=== PATIENT | male | born 1940 | race Caucasian/White ===

== ENCOUNTER 2017-01-20 05:40 | Emergency (ER) | payer OTHER ==
[~2017-01-20] VITALS: Ht 177.8 cm; Wt 77.1 kg
--- NOTE | ~2017-01-20 | EKG ---
[place] [address] [facility] [address] [place] [address] ELECTROCARDIOGRAM REPORT Name: GLENN SUE [id number] Admission: 01/20/17 Attend Phys: Discharge: 01/20/17 Date of : 36 Report #: [id number] THIS REPORT FOR: //name// [facility] ED Test Date: 2017-01-20 Test Time: 05:50:05 Pat Name: GLENN SUE Department: Room: Gender: Product Manager: SGONZAOREN : 1940 Requested By: Brielle Roe Order Number: [id number] MD: Nicolás Martínez Measurements Intervals [place] Rate: 83 P: 67 W[place]: 157 QRS: 32 QRSD: 165 T: 36 QT: 408 QTc: 480 Interpretive Statements Sinus rhythm Right bundle branch block Baseline wander in lead(s) II Compared to ECG 12/02/2010 08:27:44 No significant changes Electronically Signed On 01-20-2017 8:13:55 CDT by Nicolás Martínez [email or web address] <ELECTRONICALLY SIGNED> By: Nicolás Martínez MD, [facility] 01/20/17 0813 0550 0550 Nicolás Martínez MD, [facility] /EPI
[~2017-01-20 05:40] MED LIST: FLOMAX PO; GLUCOSAMINE CH1 EAC7 PO; HYDROCODON-ACE1 EAC1 PO; LISINOPRIL20 MG PO; MULTIVITAMINS PO; OMEPRAZOLE PO
[2017-01-20] MEDS ORDERED: PRAVACHOL40 MG PO (06:00)
[2017-01-20] MEDS ORDERED: LISINOPRIL20 MG PO (06:00)
[2017-01-20 06:13] LABS: ABSOLUTE NEUTROPHILS 4.8 thou/uL (1.4-8.2); BASOPHILS 0.7 % (0.0-2.0); EOSINOPHILS 5.1 % (0.0-3.0); HEMATOCRIT 37.8 % (42.0-52.0); HEMOGLOBIN 12.5 gm/dL (14.0-18.0); MCH 28.7 pg (26.0-34.0); MCHC 33.1 g/dL (28.0-37.0); MCV 86.6 fL (80.0-100.0); MONOCYTES 9.1 % (1.0-8.0); PLATELET COUNT 154 thou/uL (150-400); POLYS 60.1 % (36.0-66.0); RBC 4.36 mil/uL (4.50-6.00); RDW 16.3 % (10.5-14.5)
[2017-01-20 06:14] LABS: MANUAL DIFF NO
[2017-01-20 06:17] LABS: ANION GAP 9 mmol/L (7-16); BUN 20 mg/dL (7-18); CALCIUM 9.7 mg/dL (8.5-10.1); CHLORIDE 103 mmol/L (98-107); CO2 27 mmol/L (21-32); CREATININE 1.3 mg/dL (0.7-1.3); GLUCOSE 113 mg/dL (74-106); SODIUM 139 mmol/L (136-145)
[2017-01-20 06:25] LABS: TROPONIN-I < 0.04 ng/mL (<0.04-0.07)
[2017-01-20] MEDS ORDERED: ATIVAN0.5 MG PO (06:54)
[2017-01-20 07:21] VITALS: BP 139/65
== END 2017-01-20 07:21 | disposition home or self-care (01) ==
LOC: ER 05:40
PROVIDERS: Emergency Medicine
DX: F41.9 Anxiety disorder, unspecified (principal); K21.9 Gastro-esophageal reflux disease without esophagitis; I10 Essential (primary) hypertension; Z98.890 Other specified postprocedural states; Z90.49 Acquired absence of other specified parts of digestive tract